=== PATIENT | male | born 1965 | race Caucasian/White ===

== ENCOUNTER 2018-04-01 07:43 | Day surgery (SDC) | payer BC, OTHER ==
[2018-03-30 10:50] VITALS: BMI 35.5
[~2018-04-01 07:43] MED LIST: LACTATED RINGERS 1,000 ML IV SCH
[2018-04-01 07:57] VITALS: TEMP 98
[2018-04-01] MEDS ORDERED: LIDOCAINE 1% 20 ML VIAL (10MG/ML) FOR IV START INTRADERMA ONE (08:01)
[2018-04-01] MEDS ORDERED: LIDOCAINE 1% INJ 10MG/ML (20 ML MDV) ONE (08:46)
[2018-04-01] MEDS ORDERED: PROPOFOL 10 MG/ML 20 ML VIAL IV ONE (08:46)
--- NOTE | 2018-04-01 08:53 | P.GSHP ---
History of Present Illness H&P Date: 04/01/18 Chief Complaint: GERD, GI bleed This a 52-year-old male who presents today for EGD and colonoscopy. He's had issues with GERD. Patient's had previous esophageal dilatations. He is also had issues with GI bleed. Past Medical History Past Medical History: Hypertension Additional Past Medical History / Comment(s): PAST HX FAST HEART RATE UNDER CONTROL WITH MEDS. HEMORRHOIDS History of Any Multi-Drug Resistant Organisms: None Reported Past Surgical History: Tonsillectomy Additional Past Surgical History / Comment(s): esphogeal dilitation with balloon x 3 Past Anesthesia/Blood Transfusion Reactions: No Reported Reaction Smoking Status: Never smoker - Past Family History Father Family Medical History: Myocardial Infarction (NM) Medications and Allergies Home Medications Medication Instructions Recorded Confirmed Type Lisinopril [Prinivil] 20 mg PO DAILY 03/30/18 04/01/18 History Metoprolol Succinate [Toprol XL] 25 mg PO DAILY 03/30/18 04/01/18 History Allergies Allergy/AdvReac Type Severity Reaction Status Date / Time No Known Allergies Allergy Verified 03/30/18 10:45 Surgical - Exam Vital Signs Temp Pulse Resp BP Pulse Ox 98.0 F 85 16 159/89 99 04/01/18 07:53 04/01/18 07:53 04/01/18 07:53 04/01/18 07:53 04/01/18 07:53 - General well developed, no distress - Eyes PERRL - ENT normal pinna - Neck no masses - Respiratory normal expansion - Cardiovascular Rhythm: regular - Abdomen Abdomen: soft, non tender Assessment and Plan Assessment: GERD, GI bleed. We'll perform EGD and colonoscopy.
[2018-04-01 09:37] VITALS: BP 115/76; PULSE 78; RESP 18
--- NOTE | 2018-04-01 13:45 | P.OP ---
Date of Procedure: 04/01/18 Preoperative Diagnosis: GERD GI bleed Postoperative Diagnosis: Antral gastritis Esophagitis Normal colon Procedure(s) Performed: EGD Colonoscopy Anesthesia: MAC Surgeon: Vamshi Crawford Pathology: other (Antrum, esophagus) Condition: stable Disposition: PACU Description of Procedure: PROCEDURE: The patient was placed on the endoscopy table in the lateral position. Digital rectal examination was performed which revealed no abnormalities. The prostate was symmetrical without nodules. Flexible colonoscope was then placed in the patient's anus and passed throughout the entire colon. The ileocecal valve was visualized. The cecum, ascending, transverse, descending and sigmoid colon were normal. The rectum was normal as well. There were no masses, polyps or diverticula noted in the entire colon. Next, the gastroscope placed oropharynx and passed in the esophagus into the stomach. Scope was then placed through the pylorus. The first and second portion of the duodenum appeared normal. Scope was then brought back the antrum and this appeared mildly inflamed. A biopsies was performed. The scope was unretroflexed and remainder of the stomach appeared normal. There was a questionable sliding hiatal hernia. The GE junction was at 40 cm. The distal esophagus appeared inflamed and a biopsies performed. There is no evidence of a GE junction stricture. The proximal esophagus appeared normal. Scope was withdrawn for patient.
--- NOTE | 2018-04-08 05:42 | CDI ---
Date: 04/08/18 CDS/Orthopedic Physician Name: Svaanna Magana Phone: If any questions, call Cherie Le Cyl[facility] Batcher at [phone] Patient Name: Jm Webster Admit Date: 04/01/18 Discharge Date: 04/01/18 ATTENTION: The [facility] Coding Staff appreciate your assistance in clarifying documentation. Please respond to the clarification below the line at the bottom and electronically sign. The [facility] Coding staff will review the response and follow-up if needed. Please note: Queries are made part of the Legal Health Record. If you have any questions, please contact the Cylinder Batcher. Dear Dr. Crawford, Please provided clarification regarding the diagnosis of GI Bleed. Please clarify if this is secondary to any of the conditions found on your examination Thank you for your kind consideration. unable to determine MTDD
== END 2018-04-01 09:52 | disposition home or self-care (01) ==
LOC: ORWHC2ENDO 07:43
PROVIDERS: ATTEND Surgery
DX: K29.50 Unspecified chronic gastritis without bleeding (principal); K21.0 Gastro-esophageal reflux disease with esophagitis; K31.9 Disease of stomach and duodenum, unspecified; K92.2 Gastrointestinal hemorrhage, unspecified; I10 Essential (primary) hypertension; Z79.899 Other long term (current) drug therapy
CPT/HCPCS: 88305; 45378; 43239; J2001; J2704

== ENCOUNTER → 2022-08-07 | Outpatient (CLI) | payer OTHER ==
--- NOTE | 2022-08-07 09:51 | USB ---
Reason for Exam: Clinical finding. Technique: Method: Targeted. Findings: The axilla of the left breast and the retroareolar of the left breast were scanned. Flame-shaped area of decreased echogenicity left retroareolar region compatible with gynecomastia. Comparison of the right breast reveals normal-appearing retroareolar region. Overall Assessment: Benign, BI-RAD 2 Electronically signed and approved by: Silverio Ramirez M.D. [facility]
== END | disposition home or self-care (01) ==
LOC: RADUSWWP 09:28
PROVIDERS: ATTEND Family Medicine
DX: N64.4 Mastodynia (principal)

== ENCOUNTER → 2025-04-24 | Outpatient (CLI) | payer OTHER ==
--- NOTE | 2025-04-24 15:32 | US ---
EXAMINATION TYPE: US kidneys/renal and bladder DATE OF EXAM: 04/24/2025 COMPARISON: NONE CLINICAL INDICATION: Male, 59 years old with history of R10.9 AB PAIN; right flank pain TECHNIQUE: Grayscale imaging of the bilateral kidneys and urinary bladder: FINDINGS: EXAM MEASUREMENTS: Right Kidney: 10.6 x 5.7 x 4.8 cm Left Kidney: 11.3 x 6.0 x 4.9 cm Right Kidney: No hydronephrosis or masses seen Left Kidney: No hydronephrosis or masses seen Bladder: anechoic Bilateral Jets seen: yes There is no evidence for hydronephrosis at this point in time. No nephrolithiasis is seen. No adelaide s are identified. The urinary bladder is anechoic. IMPRESSION: No evidence for obstructive uropathy or renal calculus. [facility], , 04/24/2025 3:30 PM
== END | disposition home or self-care (01) ==
LOC: RADUSWWP 15:01
PROVIDERS: ATTEND Family Medicine
DX: R10.9 Unspecified abdominal pain (principal)
CPT/HCPCS: 76770